=== PATIENT | male | born 1935 | race Two or more races ===

== ENCOUNTER 2018-01-17 13:59 | Emergency (ER) | payer MEDICARE, BC ==
[~2018-01-17] VITALS: Ht 177.8 cm; Wt 77.1 kg
[2018-01-17 14:48] LABS: BASOPHILS % (AUTO) 0.4 % (0.0-2.0); EOSINOPHILS % (AUTO) 0.8 % (0.0-6.0); HEMATOCRIT 34 % (39-51); HEMOGLOBIN 11.5 g/dL (13.5-17.5); LYMPHOCYTES # (AUTO) 0.5 /CMM (0.8-4.8); LYMPHOCYTES % (AUTO) 5.2 % (20.0-44.0); MEAN CORPUSCULAR HGB CONC 34 g/dl (31.0-36.0); MEAN CORPUSCULAR VOLUME 79 fL (80-96); MONOCYTES # (AUTO) 0.6 /CMM (0.1-1.30); MONOCYTES % (AUTO) 6.3 % (2.0-12.0); NEUTROPHILS # (AUTO) 8.6 /CMM (1.8-8.9); NEUTROPHILS % (AUTO) 87.3 % (43.0-81.0); PLATELET COUNT (AUTO) 200 /CMM (150-450); RDW COEFFICIENT OF VARIATION 13.7 (11.5-15.0); RED BLOOD CELL COUNT(AUTO) 4.28 MIL/uL (4.5-6.0); WHITE BLOOD COUNT (AUTO) 9.8 K/uL (4.3-11.0)
--- NOTE | 2018-01-17 14:50 | NUR ---
PT CAME IN WITH C/O R HIP PAIN S/P TRIP AND FALL THIS AM DENIES HEAD TRAUMA/ DENIES LOC. AT BS. VSS. SEEN BY MD FOR EVAL. SAFETY AND COMFORT MEASURES PROVIDED. WILL MONITOR.
[2018-01-17 14:58] LABS: CALCIUM, SERUM 8.4 mg/dL (8.5-10.1); CARBON DIOXIDE 29 mmol/L (21-32); CHLORIDE 102 mmol/L (98-107); CREATININE 1.3 mg/dL (0.6-1.3); GLUCOSE 153 mg/dL (74-106); POTASSIUM 4.7 mmol/L (3.5-5.1); SODIUM SERUM 136 mmol/L (136-145); UREA NITROGEN, BLOOD 19 mg/dL (7-18)
--- NOTE | 2018-01-17 15:00 | NUR ---
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
[2018-01-17 15:02] LABS: INR 1.11 (0.85-1.15)
--- NOTE | 2018-01-17 15:02 | NUR ---
LEO AT BS.
--- NOTE | 2018-01-17 17:07 | NUR ---
LA ORTHO WAS REPAGED
--- NOTE | 2018-01-17 18:02 | NUR ---
WALKERS DISPENSED, TEACHINGS PROVIDED.
[2018-01-17 18:03] VITALS: BP 146/91
--- NOTE | 2018-01-17 18:03 | NUR ---
Patient discharged to home in stable condition. Written and verbal after care instructions given. Patient verbalizes understanding of instruction.
== END 2018-01-17 18:05 | disposition home or self-care (01) ==
LOC: ER 14:03
DX: S72.111A Displaced fracture of greater trochanter of right femur, initial encounter for closed fracture (principal); I48.91 Unspecified atrial fibrillation; M16.11 Unilateral primary osteoarthritis, right hip; Z01.818 Encounter for other preprocedural examination; Z79.01 Long term (current) use of anticoagulants; W01.0XXA Fall on same level from slipping, tripping and stumbling without subsequent striking against object, initial encounter; Y93.89 Activity, other specified; Y92.89 Other specified places as the place of occurrence of the external cause; Y99.8 Other external cause status
CPT/HCPCS: 36415; 71045-TC; 73502; 73700-TC; 80048-TC; 85025-TC; 85730-TC; 86850-TC; 86880-TC; A4606; Z7610

== ENCOUNTER 2020-12-27 11:17 | Outpatient (CLI) | payer MEDICARE, BC | END 2020-12-27 23:59 | disposition home or self-care (01) | LOC: MSC 11:17 | PROVIDERS: ATTEND Anesthesiology | DX: M47.27 Other spondylosis with radiculopathy, lumbosacral region (principal); M96.1 Postlaminectomy syndrome, not elsewhere classified; G89.4 Chronic pain syndrome; M79.606 Pain in leg, unspecified; Z95.1 Presence of aortocoronary bypass graft; I48.91 Unspecified atrial fibrillation; Z79.01 Long term (current) use of anticoagulants; I10 Essential (primary) hypertension; I27.20 Pulmonary hypertension, unspecified; Z79.899 Other long term (current) drug therapy ==

== ENCOUNTER 2020-12-31 12:00 | Emergency (ER) | payer MEDICARE, BC ==
[~2020-12-31] VITALS: Ht 190.5 cm; Wt 61.2 kg
[2020-12-31] MEDS ORDERED: RIVA15TA PO (13:04)
[2020-12-31] MEDS ORDERED: ATOR40TA PO (13:04)
[2020-12-31] MEDS ORDERED: TAMS-12 PO (13:04)
[2020-12-31] MEDS ORDERED: PANT40TA49 PO (13:04)
[2020-12-31] MEDS ORDERED: IV NS 0.9% 1,000 ML BAG IV ONE (13:30)
[2020-12-31 13:45] LABS: BASOPHILS % (AUTO) 0.3 % (0.0-2.0); EOSINOPHILS % (AUTO) 0.7 % (0.0-6.0); HEMATOCRIT 35 % (39-51); HEMOGLOBIN 11.4 g/dL (13.5-17.5); LYMPHOCYTES # (AUTO) 0.7 /CMM (0.8-4.8); MEAN CORPUSCULAR HGB CONC 33 g/dl (31.0-36.0); MEAN CORPUSCULAR VOLUME 85 fL (80-96); MONOCYTES # (AUTO) 0.4 /CMM (0.1-1.30); MONOCYTES % (AUTO) 6.1 % (2.0-12.0); NEUTROPHILS # (AUTO) 5.8 /CMM (1.8-8.9); NEUTROPHILS % (AUTO) 82.9 % (43.0-81.0); PLATELET COUNT (AUTO) 236 /CMM (150-450); RED BLOOD CELL COUNT(AUTO) 4.15 MIL/uL (4.5-6.0)
--- NOTE | 2020-12-31 14:01 | NUR ---
Family at bedside both aware of plan of care
[2020-12-31 14:03] LABS: CALCIUM, SERUM 8.7 mg/dL (8.5-10.1); CREATININE 1.3 mg/dL (0.6-1.3)
[2020-12-31 14:17] LABS: ALBUMIN 3.8 g/dL (3.4-5.0); BILIRUBIN,DIRECT 0.2 mg/dL (0.0-0.2); BILIRUBIN,TOTAL 0.5 mg/dL (0.2-1.0); TOTAL PROTEIN, SERUM 7.5 g/dL (6.4-8.2)
[2020-12-31] MEDS: CODEINE/PROMETHAZINE HCL 5 ML UDC PO PRN ×2 (14:32→14:33)
[2020-12-31] MEDS ORDERED: AZIT250T PO (14:32)
[2020-12-31] MEDS ORDERED: GUAI10SY3 PO (14:32)
--- NOTE | 2020-12-31 14:33 | NUR ---
Patient discharged to home in stable condition. Written and verbal after care instructions given. Patient verbalizes understanding of instruction.
[2020-12-31 14:34] VITALS: BP 118/61
== END 2020-12-31 14:35 | disposition home or self-care (01) ==
LOC: ER 12:11
DX: J02.9 Acute pharyngitis, unspecified (principal); T50.B95A Adverse effect of other viral vaccines, initial encounter; Z79.899 Other long term (current) drug therapy; Y92.89 Other specified places as the place of occurrence of the external cause
CPT/HCPCS: 36415; 71045-TC; 80048-TC; 80076-TC; 85025-TC

== ENCOUNTER 2021-01-06 14:27 | Outpatient (CLI) | payer MEDICARE, BC ==
[~2021-01-06 14:27] MED LIST: ATOR40TA PO; AZIT250T PO; GUAI10SY3 PO; PANT40TA49 PO; RIVA15TA PO; TAMS-12 PO
== END 2021-01-06 23:59 | disposition home or self-care (01) ==
LOC: LAB 14:27
PROVIDERS: ATTEND Anesthesiology
DX: Z01.812 Encounter for preprocedural laboratory examination (principal); Z20.822 Contact with and (suspected) exposure to COVID-19
CPT/HCPCS: C9803; U0003

== ENCOUNTER 2021-01-10 07:57 | Day surgery (SDC) | payer MEDICARE, BC ==
[~2021-01-10 07:57] MED LIST changes: +ANESTHESIA TRAY IN PYXIS 1 EA TRAY MC ONE
[2021-01-10] MEDS ORDERED: LIDOCAINE HCL/MPF 1% 30 ML VIAL IJ ONE (08:40)
[2021-01-10] MEDS ORDERED: IOHEXOL 240MG/ML 50 ML IV ONE (08:40)
[2021-01-10] MEDS ORDERED: BUPIVACAINE 0.5 % PF 150 MG/30 ML VIAL ONE (08:40)
[2021-01-10] MEDS ORDERED: DEXAMETHASONE SOD PHOSPHATE 4 MG/ML VIAL ONE (08:40)
[2021-01-10] MEDS ORDERED: DEXAMETHASONE SOD PHOSPHATE 10 MG/ML VIAL ONE (09:13)
[2021-01-10] MEDS ORDERED: BUPIVACAINE 0.25% 75 MG/30 ML VIAL ONE (09:15)
[2021-01-10] MEDS ORDERED: FENTANYL PF 100MCG/2ML AMPUL ONE (09:42)
== END 2021-01-10 11:05 | disposition home or self-care (01) ==
LOC: DS 07:57
PROVIDERS: ATTEND Anesthesiology
DX: M47.26 Other spondylosis with radiculopathy, lumbar region (principal); M54.5 Low back pain; G89.29 Other chronic pain; I25.10 Atherosclerotic heart disease of native coronary artery without angina pectoris; I48.91 Unspecified atrial fibrillation; I10 Essential (primary) hypertension; Z98.890 Other specified postprocedural states; Z95.1 Presence of aortocoronary bypass graft; Z79.899 Other long term (current) drug therapy
CPT/HCPCS: 64483; 64484 ×2; 72020; A6402; J1100 ×2; J2704; J3010; J3490 ×3; Q9966

== ENCOUNTER 2021-08-16 09:47 | Outpatient (CLI) | payer MEDICARE, BC ==
[~2021-08-16 09:47] MED LIST changes: -ANESTHESIA TRAY IN PYXIS 1 EA TRAY MC ONE
[2021-08-16 11:33] LABS: CALCIUM, SERUM 8.7 mg/dL (8.5-10.1); CREATININE 1.2 mg/dL (0.6-1.3); POTASSIUM 5.2 mmol/L (3.5-5.1)
== END 2021-08-16 23:59 | disposition home or self-care (01) ==
LOC: LAB 09:47
PROVIDERS: ATTEND Internal Medicine Interventional Cardiology
DX: E87.5 Hyperkalemia (principal)
CPT/HCPCS: 36415; 80048-TC